=== PATIENT | male | born 1950 | race Caucasian/White ===

== ENCOUNTER → 2018-03-07 07:35 | Outpatient (CLI) | payer MEDICARE, OTHER, SELFPAY ==
--- NOTE | 2018-03-07 07:47 | CDU_ITS ---
Reason For Study: Carotid Stenosis Rt. Velocities/BP Lt. Velocities/BP Prox CCA 76.8/15.8 cm/sec. Prox CCA 101/25.2 cm/sec. Mid CCA 85/25.2 cm/sec. Mid CCA 81.5/20.5 cm/sec. Dist CCA 82.1/24.6 cm/sec. Dist CCA 84.4/25.2 cm/sec. Prox ICA 60.9/24 cm/sec. Prox ICA 57/19.6 cm/sec. Mid ICA 81.5/26.4 cm/sec. Mid ICA 63.2/27.9 cm/sec. Dist ICA 62.8/21.9 cm/sec. Dist ICA 80.9/36.2 cm/sec. Rt. ICA/CCA = 0.96. Lt. ICA/CCA = 0.96. Prox ECA 79.7/15.8 cm/sec. Prox ECA 83.3/19.9 cm/sec. Rt. Vert. 37.4/11.4 cm/sec. Lt. Vert. 42.4/15.3 cm/sec. Right Extracranial There is intimal thickening but no significant atherosclerotic plaque noted in the right common carotid artery. There is intimal thickening but no significant atherosclerotic plaque noted in the right internal carotid artery. There is intimal thickening but no significant atherosclerotic plaque noted in the right external carotid artery. Antegrade flow is noted in the right vertebral artery. There is heterogeneous, smooth atherosclerotic plaque noted in the right bulb. Left Extracranial There is intimal thickening but no significant atherosclerotic plaque noted in the left common carotid artery. There is intimal thickening but no significant atherosclerotic plaque noted in the left internal carotid artery. There is intimal thickening but no significant atherosclerotic plaque noted in the left external carotid artery. Antegrade flow is noted in the left vertebral artery. There is heterogeneous, smooth atherosclerotic plaque noted in the left bulb. Procedure Carotid Duplex 80675. Exam performed in department. Interpretation Summary No significant atherosclerotic plaque or stenosis noted in the internal carotid arteries bilaterally. Flow within the vertebral arteries is antegrade bilaterally. A small amount of smooth, atherosclerotic plaque is noted in the carotid bulbs bilaterally, which appears to be hemodynamically insignificant. Ordering Physician: Camilo Taylor Referring Physician: FAISAL Herring M.D. Performed By: Ana Carbajal RVT and Student
== END ==
PROVIDERS: Family Provider Family Medicine; PCP Family Medicine; Referring Provider Ophthalmology; Visit Provider Ophthalmology
DX: H53.10 Unspecified subjective visual disturbances (principal)
CPT/HCPCS: 93880

== ENCOUNTER 2020-12-22 19:04 | Inpatient (IN) | payer MEDICARE, OTHER, SELFPAY ==
[2020-12-22 19:05] VITALS: BP 106/59; PULSE 72; RESP 16; TEMP 38.1; O2SAT 100; BMI 19.9
--- NOTE | 2020-12-22 20:32 | RAD_ITS ---
INDICATION: dyspnea EXAMINATION/TECHNIQUE: X-RAY - XR Chest 1 View COMPARISON: None. FINDINGS: The lungs are clear. The cardiomediastinal silhouette is unremarkable. No pleural effusion or pneumothorax. No acute osseous abnormalities. RAD/Chest 1 View (Portable) IMPRESSION: No acute radiographic abnormalities. Electronically Signed: Moo Bernal MD at 21:30 EDT Tel , Service support ,
--- NOTE | 2020-12-22 20:32 | EX.ED.DYSGE1 ---
HPI History of Present Illness Chief Complaint: General Illness Detail of Chief Complaint: Shortness of breath and concern for Covid Informant: patient Narrative Narrative: Patient presents to the emergency department with symptoms for 6 days. Patient states that he is got a cough and is lost sense of smell and taste. Patient complains of headache and body aches and fever up to 101. Patient states that somebody came over today with a pulse oximeter and his O2 sat was running 77% on room air. Patient has not had the Covid vaccine. Patient's also had mild symptoms recently but symptoms resolved after several days. Patient's states that she believes she had Covid 2 years ago. Prior similar symptoms: No [facility] Medical History (Updated 12/22/20 @ 23:[address] Marvin Flores, ) Diabetes Home Medications glimepiride 1 mg PO DAILY 12/22/20 [History Last Taken Unknown] metformin 500 mg PO BID 12/22/20 [History Last Taken Unknown] pravastatin 10 mg PO DAILY 12/22/20 [History Last Taken Unknown] Allergy/AdvReac Type Severity Reaction Status Date / Time No Known Allergies Allergy Verified 12/22/20 19:08 Social History Smoking Status: Never smoker [facility] ED Constitutional Constitutional ED: Reports systems reviewed and no addt'l complaints, except as documented and fever(s); Denies body ache(s), change in weight or chills Eyes Eyes: Denies acute decrease in peripheral vision, change in vision, double vision or loss of vision ENT ENT ED: Reports none; Denies ear pain, lip swelling, loss taste/smell, neck pain, otalgia or sore throat Cardiovascular Cardiovascular: Reports none; Denies abdominal pain, chest pain with activity, leg edema, lightheadedness, palpitations, rapid heart rate or syncope Respiratory/Chest Respiratory/Chest: Reports none, cough and dyspnea on exertion; Denies change in mental status, dry cough, dyspnea, hemoptysis, shortness of breath at rest, shortness of breath with exertion or sputum Gastrointestinal Gastrointestinal: Reports none; Denies abdominal pain, change in stool character, diarrhea, hematemesis, hematochezia, melena, rectal bleeding or vomiting Genitourinary Genitourinary ED: Reports none; Denies abdominal discomfort, anuria, dysuria, genital pain or polyuria Musculoskeletal Musculoskeletal: Reports none, arthralgias and myalgias; Denies back pain, difficulty walking, extremity pain or muscle weakness Integumentary Reports none; Denies abscess or rash Neurologic Neurologic: Reports none and headache(s); Denies abnormal gait, confusion, focal weakness, frequent falls, loss of vision, numbness, paresthesias, radicular pain, vertigo or weakness Psychiatric Psychiatric: Reports systems reviewed and no addt'l complaints, except as documented and none; Denies behavioral changes, confusion, difficulty concentrating, hallucinations, suicidal ideation, tactile hallucinations or visual hallucinations Endocrine Endocrinology: Denies none, cold intolerance, excessive sweating, fatigue or heat intolerance Hematologic/Lymphatic Hematologic/Lymphatic: Reports none; Denies anemia, easy bleeding or easy bruising Allergic/Immunologic Allergic/Immunologic ED: Denies as per HPI, none, lip swelling, mouth swelling, throat swelling, tongue swelling or hives EXAM Physical Exam Const Vital Signs: 12/22/20 19:05 12/22/20 20:26 12/22/20 21:52 Temperature 100.5 F H Temperature Source Temporal Pulse Rate 72 86 Respiratory Rate 16 18 Respiratory Effort Normal Respiratory Pattern Irregular Blood Pressure 106/59 L 108/60 Blood Pressure Mean 74 76 Pulse Ox 100 99 Oxygen Delivery Method Room Air Room Air Room Air Positive well nourished and well developed General Appearance ED: well developed and NAD HEENT Reports TM's clear and moist mucous membranes normocephalic and atraumatic; Negative for trauma or tenderness Tympanic Membrane ED: Yes TM's clear Eyes PERRL and EOMs intact bilaterally General Eye ED: Negative for pale conjunctiva or scleral icterus Neck no lymphadenopathy, supple and no JVD General: Negative for tenderness Chest Wall inspection of chest normal and palpation of chest normal Chest: Negative for tenderness Resp normal respiratory effort and clear to auscultation bilaterally Effort and Inspection: Negative for respiratory distress or pain with movement Auscultation: Negative for rhonchi, wheezes or diminished lung sounds Cardio regular rate, regular rhythm, S1 normal heart sound, S2 normal heart sound and no murmurs Peripheral Pulses: pulses 2+ throughout GI normal to inspection, nondistended, normoactive bowel sounds, soft to palpation, non-tender, non-distended and no masses Back/Spine no CVA tenderness and no thoracic nor lumbar tenderness Extremity normal to inspection General Extremety ED: Negative for edema General Extremity: Negative for edema Neuro oriented x3, CN's II-XII intact bilaterally, no sensory deficits noted and gait normal Sensorium / Orientation: awake, alert, oriented to person, oriented to place and oriented to time Motor Exam: strength 5/5 throughout and strength abnormal Psych mental status grossly normal Skin no rashes or lesions noted and no wounds MDM MDM MDM Narrative Medical decision making narrative: IV line established on arrival. Patient ambulated in the emergency department and became hypoxic with ambulation with a pulse ox of 85%. Patient was given Decadron. Case will be discussed with hospitalist to evaluate patient for admission. Lab Data Attestation: I reviewed the patient's lab results. Labs: Laboratory Results - last 24 hr 12/22/20 12/22/20 12/22/20 21:15 21:15 21:15 WBC 5.8 RBC 5.14 Hgb 15.2 Hct 46.3 MCV 90.1 MCH 29.6 MCHC 32.8 RDW Std Deviation 42.8 RDW Coeff of Autumn 12.9 Plt Count 117 L MPV 10.5 Immature Gran % (Auto) 0.300 Neut % (Auto) 77.8 H Lymph % (Auto) 16.9 L [place] % (Auto) 4.8 Eos % (Auto) 0.0 Baso % (Auto) 0.2 Absolute Neuts (auto) 4.5 Absolute Lymphs (auto) 0.98 Nucleated RBC % 0 D-Dimer Quant (PE/DVT) 1.21 H* Sodium 131 L Potassium 3.7 Chloride 95 L Carbon Dioxide 31.0 Anion Gap 5 BUN 21 H Creatinine 0.82 Estim Creat Clear Calc 70.53 Est GFR (MDRD) Af Amer 118 Est GFR (MDRD) Non-Af 97 BUN/Creatinine Ratio 25.5 H Glucose 151 H Lactic Acid Calcium 8.5 12/22/20 21:15 WBC RBC Hgb Hct MCV MCH MCHC RDW Std Deviation RDW Coeff of Autumn Plt Count MPV Immature Gran % (Auto) Neut % (Auto) Lymph % (Auto) [place] % (Auto) Eos % (Auto) Baso % (Auto) Absolute Neuts (auto) Absolute Lymphs (auto) Nucleated RBC % D-Dimer Quant (PE/DVT) Sodium Potassium Chloride Carbon Dioxide Anion Gap BUN Creatinine Estim Creat Clear Calc Est GFR (MDRD) Af Amer Est GFR (MDRD) Non-Af BUN/Creatinine Ratio Glucose Lactic Acid 1.6 Calcium Radiography Diagnostic Testing: Radiology Impression Chest X-Ray 12/22/20 20:32 IMPRESSION: No acute radiographic abnormalities. Electronically Signed: Moo Bernal MD at 21:30 EDT Tel , Service support , Chest CTA 12/22/20 22:03 IMPRESSION: Normal CTA chest examination, without a demonstrated pulmonary embolism or arterial dissection. Electronically Signed: Randy Oconnor DO at 23:05 EDT Tel [phone], Service support , 1 view chest x-ray obtained interpreted by myself as no acute disease process. Radiology in agreement. Discharge Plan Dx/Rx/DC Orders Clinical Impression: COVID-19, Hypoxemia Disposition Disposition: Acute Care Hospital [facility]
[2020-12-22] MEDS: 0.9% Normal Saline 1,000 ML 150 ML IV (21:25)
[2020-12-22 21:52] VITALS: BP 108/60; PULSE 86; RESP 18; O2SAT 99
[2020-12-22 21:55] LABS: Absolute Lymphocyte Count 0.98 X10^3/uL (0.83-4.51); Absolute Neutrophil Count 4.5 X10^3/uL (2.0-7.7); Basophil# 0.01 X10^3/uL; Basophil% 0.2 % (0-1); Hematocrit 46.3 % (40-54); Hemoglobin 15.2 g/dL (13.0-16.5); Lymphocyte # 0.98 X10^3/ul (0.83-4.51); Lymphocyte % 16.9 % (19-41); Mean Corp Hgb Conc 32.8 g/dL (32-36); Mean Corpuscular Hgb 29.6 pg (27.0-32.0); Mean Corpuscular Volume 90.1 fL (80-94); Mean Platelet Vol. 10.5 fl (6.2-12.0); Monocyte# 0.28 X10^3/uL; Monocyte% 4.8 % (0-10); NRBC Flagged by Analyzer 0 % (0-5); Neutrophil # 4.52 X10^3/uL (2.7-7.7); Neutrophil % 77.8 % (47-70); Platelet Count 117 K/mm3 (150-450); RBC Distribution Width CV 12.9 % (11.6-14.6); RBC Distribution Width SD 42.8 fl (35.1-43.9); Red Blood Count 5.14 M/mm3 (4.6-6.2); White Blood Count 5.8 K/mm3 (4.4-11.0)
[2020-12-22 22:02] LABS: D-Dimer Quantitative (DVT/PE) 1.21 FEU/ug/m (0.27-0.49)
--- NOTE | 2020-12-22 22:03 | CT_ITS ---
STUDY: CTA CHEST REASON FOR EXAM: Male, 70 years old. Fever. Low oxygen level. Elevated d-dimer. COVID positive RADIATION DOSAGE (If Supplied By Facility): CTDIvol = ( 8.98 ) mGy, DLP = ( 230.21 ) mGycm TECHNIQUE: The examination was performed with the intravenous administration of IV 100mL Isovue-370. Post-processing of the angiographic images was performed, with multiplanar reformation and 3D reconstruction. Individualized dose optimization techniques were used for this CT. COMPARISON: Chest, 12/22/2020. FINDINGS: Normal enhancement of the main pulmonary artery and right and left pulmonary arteries. Normal enhancement of the bilateral peripheral pulmonary arteries. There is no demonstrated pulmonary embolism. Atherosclerotic changes of the descending thoracic aorta without aneurysm. There is no demonstrated aortic dissection. Normal heart and pericardium. Minimal coronary artery calcifications. Normal mediastinum. Normal hilar regions. Normal visualized trachea and bronchi. The lungs are well expanded. Normal pulmonary parenchyma. Normal pleura. Normal chest wall structures. Normal osseous structures. Normal visualized upper abdomen. CT/CTA Chest W/WO Contrast IMPRESSION: Normal CTA chest examination, without a demonstrated pulmonary embolism or arterial dissection. Electronically Signed: Randy Oconnor DO at 23:05 EDT Tel [phone], Service support ,
[2020-12-22 22:19] LABS: Anion Gap 5 (5-15); BUN 21 mg/dL (7-18); BUN/Creat Ratio 25.5 RATIO (10-20); Calcium,Total 8.5 mg/dL (8.5-10.1); Chloride 95 mmol/L (98-107); Creatinine, Serum 0.82 mg/dL (0.70-1.30); EST Glomerular Filtration Rate 97 mL/min (>60); Est Glom Filt Rate - Afr Amer 118 mL/min (>60); Estimated Creatinine Clearance 70.53 ml/min; Glucose 151 mg/dL (74-106); Potassium 3.7 mmol/L (3.5-5.1); Sodium Level 131 mmol/L (136-145)
[2020-12-22 22:27] LABS: Lactic Acid 1.6 mmol/L (0.4-1.9)
[2020-12-22 23:24] VITALS: O2SAT 91
--- NOTE | 2020-12-22 23:51 | PCM.HP.STD ---
HPI - General General Date of Admission: 12/22/20 Date of Service: 12/22/20 Chief Complaint: Fever, fatigue, malaise, dizziness x 3-4 days. HPI Narrative The patient is a 70 y/o M w/ PMHx: HLD, Diabetes mellitus type II, Former tobacco use who presents to the [facility] ED on 12/22/20 with history of onset progressively worsening fatigue, malaise, fever, frontal headaches, mild scratchy throat, alteration to sense of taste and smell, body aches in addition to cough and dyspnea worsening over the last 7 days prompting eventual ED presentation. He denies having been COVID vaccinated. His is also present and denies having been ill recently. Patient denies any associated nausea, emesis, diarrhea or abdominal cramping. He does report mild lightheadedness and dizziness. He does state he has had poor appetite with decreased intake. In the ED work-up included T1 100.5, heart rate 72, BP 106/59, respiratory rate 16, patient initially was 98 200% on room air when first evaluated however with ambulation to patient room and to restroom he significantly became hypoxic down to 85% and was placed on supplemental oxygen with ambulation, improved to 91 to 93% while seated upright in the ED bed following, CBC with WC 5.8, hemoglobin 15.2, platelet 117 without marked shift, D-dimer 1.21, BMP with sodium 131, chloride 95, BUN/creatinine 21/0.82, glucose 151, lactic acid 1.6, rapid Covid antigen positive, chest x-ray with no acute cardiopulmonary findings, follow-up CTPA with no acute PE or dissection nor any evidence of Covid pneumonia. In the ED patient ministered 6 mg dexamethasone p.o. x1 as well as normal saline. Upon initial ED evaluation and discussion with family and patient, reticent for usage of remdesivir however eventually decided that they were amenable to this treatment. [facility] Medical History (Updated 12/23/20 @ 00:[address] Smitha Palacios MD) Diabetes mellitus type II, controlled HLD (hyperlipidemia) Home Medications glimepiride 1 mg PO DAILY 12/22/20 [History Last Taken Unknown] metformin 500 mg PO BID 12/22/20 [History Last Taken Unknown] pravastatin 10 mg PO DAILY 12/22/20 [History Last Taken Unknown] Allergy/AdvReac Type Severity Reaction Status Date / Time No Known Allergies Allergy Verified 12/22/20 19:08 Family History (Updated 12/23/20 @ 00:[address] Smitha Palacios MD) Mother Hypertension other (Patient denies any marked paternal family history including HD, DM, CA.) Surgical History (Updated 12/23/20 @ 00:[address] Smitha Palacios MD) S/P eye surgery Social History (Updated 12/23/20 @ 00:[address] Smitha Palacios MD) household members: spouse Smoking Status: Former smoker how long ago did patient quit smokin/4 ppd cigarette tobacco use in his 30s, smoked 5-10 years. alcohol intake: never substance use type: does not use ROS ROS Narrative Admission Review of Systems: CONSTITUTIONAL: No weight loss, + fever, chills, weakness or fatigue. HEENT: + Altered sense of taste and smell, headache, scratchy throat. Eyes: No visual loss, blurred vision, double vision or yellow sclerae. Ears, Nose, Throat: No hearing loss, sneezing, congestion, runny nose. SKIN: No rash or itching, lesions, wounds. CARDIOVASCULAR: No chest pain, chest pressure or chest discomfort, palpitations, edema, orthopnea, syncopal events. RESPIRATORY: + shortness of breath, cough, No marked sputum, wheezing, hemoptysis. GASTROINTESTINAL: + anorexia, No nausea, vomiting or diarrhea, abdominal pain, melena, BRBPR. GENITOURINARY: No dysuria, frequency, urgency or retention. NEUROLOGICAL: No headache, dizziness, syncope, paralysis, ataxia, numbness or tingling in the extremities, focal weakness, change in bowel or bladder control, seizure. MUSCULOSKELETAL: + muscle, back pain, joint pain or stiffness. HEMATOLOGIC: No anemia, bleeding or bruising. LYMPHATICS: No enlarged nodes. No history of splenectomy. PSYCHIATRIC: No history of depression or anxiety. ENDOCRINOLOGIC: No reports of sweating, cold or heat intolerance. No polyuria or polydipsia. ALLERGIES: No history of asthma, hives, eczema or rhinitis. Vital Signs Vital Signs Vital Signs: 12/22/20 19:05 12/22/20 20:26 12/22/20 21:52 Temperature 100.5 F H Temperature Source Temporal Pulse Rate 72 86 Respiratory Rate 16 18 Respiratory Effort Normal Respiratory Pattern Irregular Blood Pressure 106/59 L 108/60 Blood Pressure Mean 74 76 Pulse Ox 100 99 Oxygen Delivery Method Room Air Room Air Room Air Weight Weight: 135 lb Body Mass Index (BMI) 19.9 Physical Exam Narrative Physical Examination: General: Awake, alert, oriented x 3 and cooperative, seated upright in the ED bed, fatigued and ill-appearing, intermittently will desaturate even while resting the bed to the upper 80s. Skin: Normal color, normal turgor, no icterus, no cyanosis. HEENT: AT/NC, EOMI, PERRLA, moderately dry MM, no carotid bruits or JVD noted. Lungs: Diffusely diminished, greater bases, mild crackles bases, no evidence of any distress, no rales, ronchi or wheezing. Heart: Regular rate and rhythm; no gallop, rub audible. Abdomen: Soft, NTTP, ND, normal BS, no HSM. Extremities: No cyanosis, clubbing, or edema. Neurological: Patient awake, alert, oriented as noted, cognitive function intact; pupils equally reactive to light and accommodation, cranial nerves II-XII grossly normal, moving all 4 extremities, no focal deficits, strength moderately to severely global decrease secondary to acute presentation. Psychiatric: Affect appears fatigued, ill-appearing, no acute evidence of depressive or anxiety feelings. Results Lab / Micro Data Result Diagrams: 12/22/20 21:15 12/22/20 21:15 Labs: Laboratory Results - last 24 hr 12/22/20 21:15: WBC 5.8, RBC 5.14, Hgb 15.2, Hct 46.3, MCV 90.1, MCH 29.6, MCHC 32.8, RDW Std Deviation 42.8, RDW Coeff of Autumn 12.9, Plt Count 117 L, MPV 10.5, Immature Gran % (Auto) 0.300, Neut % (Auto) 77.8 H, Lymph % (Auto) 16.9 L, [place] % (Auto) 4.8, Eos % (Auto) 0.0, Baso % (Auto) 0.2, Absolute Neuts (auto) 4.5, Absolute Lymphs (auto) 0.98, Nucleated RBC % 0 12/22/20 21:15: D-Dimer Quant (PE/DVT) 1.21 H* 12/22/20 21:15: Sodium 131 L, Potassium 3.7, Chloride 95 L, Carbon Dioxide 31.0, Anion Gap 5, BUN 21 H, Creatinine 0.82, Estim Creat Clear Calc 70.53, Est GFR (MDRD) Af Amer 118, Est GFR (MDRD) Non-Af 97, BUN/Creatinine Ratio 25.5 H, Glucose 151 H, Calcium 8.5 12/22/20 21:15: Lactic Acid 1.6 Micro: Microbiology 12/22/20 20:20 Nasal Secretion SARS-CoV-2 Antigen (Rapid) - Final SARS-CoV-2 (COVID 19) Radiology Impression Chest X-Ray 12/22/20 20:32 IMPRESSION: No acute radiographic abnormalities. Electronically Signed: Moo Bernal MD at 21:30 EDT Tel , Service support , Chest CTA 12/22/20 22:03 IMPRESSION: Normal CTA chest examination, without a demonstrated pulmonary embolism or arterial dissection. Electronically Signed: Randy Oconnor DO at 23:05 EDT Tel [phone], Service support , Assessment & Plan Assessment/Plan (1) Hypoxemia: (2) COVID-19: PLAN: The patient is a 70 y/o M w/ PMHx: HLD, Diabetes mellitus type II, Former tobacco use who presents to the [facility] ED on 12/22/20 with history of onset progressively worsening fatigue, malaise, fever, frontal headaches, mild scratchy throat, alteration to sense of taste and smell, body aches in addition to cough and dyspnea worsening over the last 7 days prompting eventual ED presentation. 1. Acute Hypoxia secondary to Acute Viral Syndrome, COVID-19: We will admit to medical surgical floor on telemetry, maintain Covid precautions, will maintain on oxygen with wean as tolerated to room air, PRN albuterol, HOB, IS parameters w/ pending sputum cultures, respiratory viral panel and urine antigens, will obtain procalcitonin, CRP, CPK, Ferritin, LDH, trop and BNP, continue supportive care including q 2 hour turning including prone given no prone bed availability and judicious hydration, closely monitor for worsening status for ARDS and multiorgan failure, will initiate and continue IV decadron x 10 doses, given presentation will also initiate IV remdesivir to which patient and spouse were both amenable following lengthy discussions. 2. Thrombocytopenia, suspect acute secondary to #1: Admission platelets 117, unclear baseline however given #1 do suspect acute, will repeat CBC in AM. 3. Hyponatremia, mild, suspected hypovolemic: Admission sodium 131, chloride 95, do suspect mild dehydration secondary to #1, will judiciously hydrate especially given #1 and repeat CMP in AM. 4. Diabetes mellitus type II: Hold oral home regimen, ADA diet, accu checks w/ ISS. 5. Hyperlipidemia: Continue home statin regimen. 6. Former tobacco use: Encourage continued tobacco cessation. 7. DVT prophylaxis: SCDs, Lovenox. 8. CODE status: Patient HCPJENNIFER is his who is present and living will is currently in place. Discussed CODE status at length including difference between FULL code, DNR-CCA and DNR-CC status. Following discussions about the differences in these status, requested Full Code status. Discussed also possible need if worsens for usage of air Vo and BiPAP to which patient was amenable. Advanced Care Planning Face to Face Time: 16 minutes. Charges/Coding Visit Charges Inpatient E&M: 76370 Init Hosp L3 Procedures Hospitalists Procedures: 68142 Advncd Care Plan 30 Min
[2020-12-23] VITALS (12 sets, daily range): BP systolic 74–117; BP diastolic 60–79; PULSE 52–74; RESP 15–48; TEMP 35.5–38.6; O2SAT 95–99
[2020-12-23] MEDS: dexAMETHasone 4 MG/ML Vial 6 MG IV ×2 (00:25→09:32)
[2020-12-23 00:51] LABS: BNP,B-Type NATRIURETIC PEPTIDE 19.2 pg/mL (0-100)
[2020-12-23 00:54] LABS: Ferritin 786 ng/mL (26-388); LDH 475 U/L (87-241); Magnesium 2.1 mg/dL (1.6-2.6)
[2020-12-23 01:00] LABS: Procalcitonin 0.09 ng/mL (0.00-0.09)
--- NOTE | 2020-12-23 01:13 | PCS.PANDOC ---
PANDEMIC DOCUMENTATION INITIATED: Date: 11/15/2020 Time: 190
[2020-12-23] MEDS: 0.9% Normal Saline 1,000 ML 100 ML IV (01:31)
[2020-12-23] MEDS: 0.9% Saline Lock 10 ML Syringe IV ×2 (01:48→20:44)
[2020-12-23] MEDS: Acetaminophen 325 MG Tablet 650 MG PO ×2 (01:51→09:30)
[2020-12-23 05:22] LABS: Absolute Neutrophil Count 5.1 X10^3/uL (2.0-7.7); Basophil# 0.01 X10^3/uL; Basophil% 0.2 % (0-1); Hematocrit 42.9 % (40-54); Hemoglobin 14.1 g/dL (13.0-16.5); Lymphocyte % 10.1 % (19-41); Mean Corp Hgb Conc 32.9 g/dL (32-36); Mean Corpuscular Hgb 29.7 pg (27.0-32.0); Mean Corpuscular Volume 90.3 fL (80-94); Mean Platelet Vol. 10.2 fl (6.2-12.0); Monocyte# 0.24 X10^3/uL; NRBC Flagged by Analyzer 0 % (0-5); Neutrophil # 5.07 X10^3/uL (2.7-7.7); Neutrophil % 85.2 % (47-70); POSITIVE DIFFERENTIAL YES; POSITIVE MORPHOLOGY YES; Platelet Count 118 K/mm3 (150-450); RBC Distribution Width CV 12.8 % (11.6-14.6); RBC Distribution Width SD 42.5 fl (35.1-43.9); Red Blood Count 4.75 M/mm3 (4.6-6.2)
[2020-12-23 05:35] LABS: Differential Indicated SCAN CRITERIA MET
[2020-12-23 06:15] LABS: ALB/GLOB Ratio 0.6 RATIO (0.9-2.4); AST(SGOT) 31 U/L (15-37); Alanine Aminotransfer ALT/SGPT 17 U/L (16-61); Albumin, Serum 2.5 g/dL (3.2-5.0); Alkaline Phosphatase 68 U/L (45-117); Anion Gap 5 (5-15); BUN 17 mg/dL (7-18); BUN/Creat Ratio 21.9 RATIO (10-20); Calcium,Total 7.7 mg/dL (8.5-10.1); Chloride 104 mmol/L (98-107); Creatinine, Serum 0.78 mg/dL (0.70-1.30); EST Glomerular Filtration Rate 105 mL/min (>60); Est Glom Filt Rate - Afr Amer 127 mL/min (>60); Estimated Creatinine Clearance 58.18 ml/min; Globulin 3.9 g/dL (2.2-4.2); Glucose 221 mg/dL (74-106); Protein, Total 6.4 g/dL (6.4-8.2); Sodium Level 136 mmol/L (136-145)
[2020-12-23] MEDS: Insulin Lispro 100 UNIT/ML INSULN.PEN SC ×4 (06:46→21:32)
[2020-12-23 06:50] LABS: Bedside Glucose 218 mg/dL (70-110)
--- NOTE | 2020-12-23 08:15 | PCM.PN.HOSP ---
Objective Data Objective Data Vital Signs: Vital Signs Temp Pulse Resp BP Pulse Ox 98.8 F 52 L 23 H 116/67 97 12/23/20 04:00 12/23/20 07:09 12/23/20 04:00 12/23/20 04:00 12/23/20 04:00 Oxygen Flow Rate (L/min) 3 Oxygen Delivery Method Nasal Cannula Weight: 61.6 kg Body Mass Index (BMI) 20.0 Intake & Output: Intake and Output for Last 24 Hours 12/21/20 12/22/20 12/23/20 23:59 23:59 23:59 Intake Total 1610 / 1610 Output Total 600 / 600 Balance 1010 / 1010 Lab / Micro Data Result Diagrams: 12/23/20 05:14 12/23/20 05:14 Labs: Laboratory Results - last 24 hr 12/22/20 21:15: WBC 5.8, RBC 5.14, Hgb 15.2, Hct 46.3, MCV 90.1, MCH 29.6, MCHC 32.8, RDW Std Deviation 42.8, RDW Coeff of Autumn 12.9, Plt Count 117 L, MPV 10.5, Immature Gran % (Auto) 0.300, Neut % (Auto) 77.8 H, Lymph % (Auto) 16.9 L, [place] % (Auto) 4.8, Eos % (Auto) 0.0, Baso % (Auto) 0.2, Absolute Neuts (auto) 4.5, Absolute Lymphs (auto) 0.98, Nucleated RBC % 0 12/22/20 21:15: D-Dimer Quant (PE/DVT) 1.21 H* 12/22/20 21:15: Sodium 131 L, Potassium 3.7, Chloride 95 L, Carbon Dioxide 31.0, Anion Gap 5, BUN 21 H, Creatinine 0.82, Estim Creat Clear Calc 70.53, Est GFR (MDRD) Af Amer 118, Est GFR (MDRD) Non-Af 97, BUN/Creatinine Ratio 25.5 H, Glucose 151 H, Calcium 8.5 12/22/20 21:15: Lactic Acid 1.6 12/22/20 21:15: Magnesium 2.1, Ferritin 786 H, Lactate Dehydrogenase 475 H, C-React Prot Ext Range 56.60 H 12/22/20 21:15: B-Natriuretic Peptide 19.2 12/22/20 21:15: Procalcitonin 0.09 12/23/20 05:14: WBC 6.0, RBC 4.75, Hgb 14.1, Hct 42.9, MCV 90.3, MCH 29.7, MCHC 32.9, RDW Std Deviation 42.5, RDW Coeff of Autumn 12.8, Plt Count 118 L, MPV 10.2, Immature Gran % (Auto) 0.500, Neut % (Auto) 85.2 H, Lymph % (Auto) 10.1 L, [place] % (Auto) 4.0, Eos % (Auto) 0.0, Baso % (Auto) 0.2, Absolute Neuts (auto) 5.1, Absolute Lymphs (auto) 0.60 L, Nucleated RBC % 0 12/23/20 05:14: Sodium 136, Potassium 4.0, Chloride 104, Carbon Dioxide 27.0, Anion Gap 5, BUN 17, Creatinine 0.78, Estim Creat Clear Calc 58.18, Est GFR (MDRD) Af Amer 127, Est GFR (MDRD) Non-Af 105, BUN/Creatinine Ratio 21.9 H, Glucose 221 H, Calcium 7.7 L, Total Bilirubin 0.40, AST 31, ALT 17, Alkaline Phosphatase 68, Total Protein 6.4, Albumin 2.5 L, Globulin 3.9, Albumin/Globulin Ratio 0.6 L 12/23/20 06:41: POC Glucose 218 H Micro: Microbiology 12/23/20 01:30 Mucosa - Nasopharyngeal Respiratory Panel (PCR) - Final 12/22/20 20:20 Nasal Secretion SARS-CoV-2 Antigen (Rapid) - Final SARS-CoV-2 (COVID 19) Radiography Diagnostic Testing: Radiology Impression Chest X-Ray 12/22/20 20:32 IMPRESSION: No acute radiographic abnormalities. Electronically Signed: Moo Bernal MD at 21:30 EDT Tel , Service support , Chest CTA 12/22/20 22:03 IMPRESSION: Normal CTA chest examination, without a demonstrated pulmonary embolism or arterial dissection. Electronically Signed: Randy Oconnor DO at 23:05 EDT Tel [phone], Service support , Physical Exam Narrative GENERAL: cooperative HEENT: Atraumatic; EYES; Anicteric, Normal Conjunctiva NECK; supple, normal thyroid, RESPIRATORY: Diminished to auscultation CARDIOVASCULAR: Regular S1 S2, GI: soft, normoactive bowel sounds, : No Renal angle tenderness; EXTREMITIES: No edema, no clubbing, MUSCULOSKELETAL: no muscle waisting NEURO: Awake; no lateralizing signs. SKIN: No Rash PSYCH; Flat affect Assessment & Plan Assessment/Plan (1) Hypoxemia: (2) COVID-19: PLAN: Patient is a 71-year-old gentleman who presented with progressive generalized weakness and fever of 3 days duration. An assessment of SARS-CoV-2 infection made. Patient admitted to a monitored bed for subsequent management 1. SARS-CoV-2 infection ?Imaging studies obtained did not show any infiltrate consistent with COVID-19. Patient has however been admitted to regular nursing floor. Patient was started on remdesivir and Decadron.. Subsequent markers of inflammation including CRP CPK ferritin LDH troponin and BMP ordered for monitoring. Patient was also placed on supplemental oxygen 2. Thrombocytopenia ?Suspected to be secondary to SARS-CoV-2 pneumonia we will continue with monitoring 3. 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 Diabetes mellitus type II -patient's oral hypoglycemics held. Placed on long acting insulin, Accu-Cheks a.c. and at bedtime and covered with sliding scale insulin 5. Elevated D-dimer ?Secondary to SARS-CoV-2 infection. CTA of the chest obtained was negative for PE 6. Dyslipidemia ?Patient is on pravastatin at home did continue 7. DVT prophylaxis ?Lovenox Charges/Coding Visit Charges Inpatient E&M: 09073 Subs Hosp L3
[2020-12-23] MEDS: guaiFENesin 10 ML UDC (200MG/10ML) 20 ML PO (09:30)
[2020-12-23] MEDS: Enoxaparin 30 MG/0.3 ML Syringe SC ×2 (09:36→20:42)
[2020-12-23 12:31] LABS: Bedside Glucose 294 mg/dL (70-110)
--- NOTE | 2020-12-23 13:15 | CASEMGMT ---
RN CM METAL CONTAINER MAKER CM to room to meet with patient for initial transition planning/care coordination assessment. LEW STEWART introduced self and role at [facility]. Pt voices understanding and consents to assessment at this time. Pt sitting on edge of bed, in no distress at this time. Pt is A/O at this time and answers all questions appropriately. Care providers, pharmacy, and demographics verified/updated at this time. PCP: Dr Duggan Specialists: [facility] Preferred Pharmacy: [facility] retail Insurance: [employer] Prescription Benefit: Yes Living Will/HPOA: States has both LW and HPOA, who is his , Analy. LNOK: , Analy. 2 dtrs: Leticia and Leah, and a son. Living Arrangements: Lives w/his in 2-story home w/2 steps to enter. Independent prior to recent illness. Transportation: Pt states drives self and states no transportation concerns at this time. also drives. DME: States has the following DME: nebulizer, glucometer, pulse ox No home O2. Pt may qualifiy for home O2 @ d/c. Pt was provided with list of DME providers including consistent with the patient's preferred geographic region, medical needs, and insurance network. Pt states does not have a preference of DME co and would like someone to call his to discuss options w/her, if he qualifies for O2 @ d/c. HHC/SNF: No hx of either. Denies needs for HHC. Pt wishes to return home and states has no concerns with going home at time of discharge. CM to follow for home oxygen needs and any further discharge planning/needs. Pt voices no further concerns/needs at this time. Advised pt to ask for CM if any further questions/concerns/needs arise. Voices understanding. PLAN: Home w/spousal support and discharge plans in place. CM to follow for O2 needs @ d/c. Julita HENAO RN, CM
[2020-12-23 18:00] LABS: Bedside Glucose 217 mg/dL (70-110)
--- NOTE | 2020-12-23 18:49 | NURSING ---
called and gave update again. no change did given update at 1800 when in patient room he was on phone with her discussed vitals and o2 use improving patient feeling better
[2020-12-23 21:30] LABS: Bedside Glucose 223 mg/dL (70-110)
[2020-12-24] VITALS (14 sets, daily range): BP systolic 100–120; BP diastolic 40–86; PULSE 50–72; RESP 12–18; TEMP 35.9–36.8; O2SAT 94–97
[2020-12-24] MEDS: Acetaminophen 325 MG Tablet 650 MG PO ×3 (01:39→19:56)
[2020-12-24] MEDS: Insulin Lispro 100 UNIT/ML INSULN.PEN SC ×3 (06:05→17:11)
[2020-12-24 06:36] LABS: Absolute Lymphocyte Count 1.55 X10^3/uL (0.83-4.51); Basophil# 0.01 X10^3/uL; Basophil% 0.1 % (0-1); Hematocrit 42.4 % (40-54); Hemoglobin 14.1 g/dL (13.0-16.5); Lymphocyte # 1.55 X10^3/ul (0.83-4.51); Mean Corp Hgb Conc 33.3 g/dL (32-36); Mean Corpuscular Hgb 29.7 pg (27.0-32.0); Mean Corpuscular Volume 89.3 fL (80-94); Mean Platelet Vol. 10.7 fl (6.2-12.0); Monocyte# 0.62 X10^3/uL; Monocyte% 7.6 % (0-10); NRBC Flagged by Analyzer 0 % (0-5); Neutrophil # 5.95 X10^3/uL (2.7-7.7); Neutrophil % 72.8 % (47-70); Platelet Count 149 K/mm3 (150-450); RBC Distribution Width CV 12.8 % (11.6-14.6); RBC Distribution Width SD 41.8 fl (35.1-43.9); Red Blood Count 4.75 M/mm3 (4.6-6.2); White Blood Count 8.2 K/mm3 (4.4-11.0)
[2020-12-24 06:41] LABS: Bedside Glucose 203 mg/dL (70-110)
[2020-12-24 06:54] LABS: ALB/GLOB Ratio 0.6 RATIO (0.9-2.4); AST(SGOT) 21 U/L (15-37); Alanine Aminotransfer ALT/SGPT 15 U/L (16-61); Albumin, Serum 2.4 g/dL (3.2-5.0); Alkaline Phosphatase 58 U/L (45-117); Anion Gap 4 (5-15); BUN 20 mg/dL (7-18); BUN/Creat Ratio 35.3 RATIO (10-20); Chloride 106 mmol/L (98-107); Creatinine, Serum 0.57 mg/dL (0.70-1.30); EST Glomerular Filtration Rate 150 mL/min (>60); Est Glom Filt Rate - Afr Amer 182 mL/min (>60); Estimated Creatinine Clearance 57.33 ml/min; Globulin 3.7 g/dL (2.2-4.2); Glucose 182 mg/dL (74-106); Magnesium 2.2 mg/dL (1.6-2.6); Protein, Total 6.1 g/dL (6.4-8.2); Sodium Level 139 mmol/L (136-145)
--- NOTE | 2020-12-24 07:41 | PN.HOSP_ITS ---
Subjective Subjective Patient seen improving clinically currently not on any supplemental oxygen. Plan is to observe patient for 1 additional day with possible discharge in a.m. Objective Data Objective Data Vital Signs: Vital Signs Temp Pulse Resp BP Pulse Ox 97.8 F 54 L 18 120/86 H 97 12/24/20 06:17 12/24/20 06:42 12/24/20 06:17 12/24/20 06:17 12/24/20 06:17 Oxygen Flow Rate (L/min) 2 Oxygen Delivery Method Room Air Weight: 60.7 kg Body Mass Index (BMI) 20.0 Intake & Output: Intake and Output for Last 24 Hours 12/22/20 12/23/20 12/24/20 23:59 23:59 23:59 Intake Total 3830 / 3830 240 / 240 Output Total 600 / 600 Balance 3230 / 3230 240 / 240 Lab / Micro Data Result Diagrams: 12/24/20 06:00 12/24/20 06:00 Labs: Laboratory Results - last 24 hr 12/23/20 11:37: POC Glucose 294 H 12/23/20 17:49: POC Glucose 217 H 12/23/20 20:40: POC Glucose 223 H 12/24/20 06:00: WBC 8.2, RBC 4.75, Hgb 14.1, Hct 42.4, MCV 89.3, MCH 29.7, MCHC 33.3, RDW Std Deviation 41.8, RDW Coeff of Autumn 12.8, Plt Count 149 L, MPV 10.7, Immature Gran % (Auto) 0.500, Neut % (Auto) 72.8 H, Lymph % (Auto) 19.0, [place] % (Auto) 7.6, Eos % (Auto) 0.0, Baso % (Auto) 0.1, Absolute Neuts (auto) 6.0, Absolute Lymphs (auto) 1.55, Nucleated RBC % 0 12/24/20 06:00: Sodium 139, Potassium 4.0, Chloride 106, Carbon Dioxide 29.0, Anion Gap 4 L, BUN 20 H, Creatinine 0.57 L, Estim Creat Clear Calc 57.33, Est GFR (MDRD) Af Amer 182, Est GFR (MDRD) Non-Af 150, BUN/Creatinine Ratio 35.3 H, Glucose 182 H, Calcium 8.0 L, Magnesium 2.2, Total Bilirubin 0.40, AST 21, ALT 15 L, Alkaline Phosphatase 58, Total Protein 6.1 L, Albumin 2.4 L, Globulin 3.7, Albumin/Globulin Ratio 0.6 L 12/24/20 06:04: POC Glucose 203 H Micro: Microbiology 12/23/20 02:25 Urine, Clean Catch Legionella Antigen - Final 12/23/20 02:25 Urine, Clean Catch Streptococcus pneumoniae Antigen (M - Final 12/23/20 01:30 Mucosa - Nasopharyngeal Respiratory Panel (PCR) - Final 12/22/20 20:20 Nasal Secretion SARS-CoV-2 Antigen (Rapid) - Final SARS-CoV-2 (COVID 19) Physical Exam Narrative GENERAL: cooperative HEENT: Atraumatic; EYES; Anicteric, Normal Conjunctiva NECK; supple, normal thyroid, RESPIRATORY: Diminished to auscultation CARDIOVASCULAR: Regular S1 S2, GI: soft, normoactive bowel sounds, : No Renal angle tenderness; EXTREMITIES: No edema, no clubbing, MUSCULOSKELETAL: no muscle waisting NEURO: Awake; no lateralizing signs. SKIN: No Rash PSYCH; Flat affect Assessment & Plan Assessment/Plan (1) Hypoxemia: (2) COVID-19: PLAN: Patient is a 71-year-old gentleman who presented with progressive generalized weakness and fever of 3 days duration. An assessment of SARS-CoV-2 infection made. Patient admitted to a monitored bed for subsequent management 1. SARS-CoV-2 infection ?Imaging studies obtained did not show any infiltrate consistent with COVID-19. Patient has however been admitted to regular nursing floor. Patient was started on remdesivir and Decadron.. Subsequent markers of inflammation including CRP CPK ferritin LDH troponin and BMP ordered for monitoring. Patient was also placed on supplemental oxygen -12/24/2020 Patient seen improving clinically currently not on any supplemental oxygen. Plan is to observe patient for 1 additional day with possible discharge in a.m. 2. Thrombocytopenia ?Suspected to be secondary to SARS-CoV-2 pneumonia we will continue with monitoring 3. 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 Diabetes mellitus type II -patient's oral hypoglycemics held. Placed on long acting insulin, Accu-Cheks a.c. and at bedtime and covered with sliding scale insulin 5. Elevated D-dimer ?Secondary to SARS-CoV-2 infection. CTA of the chest obtained was negative for PE 6. Dyslipidemia ?Patient is on pravastatin at home did continue 7. DVT prophylaxis ?Maximus Charges/Coding Visit Charges Inpatient E&M: 85407 Subs Hosp L2
[2020-12-24] MEDS: Enoxaparin 30 MG/0.3 ML Syringe SC (09:46)
[2020-12-24 12:55] LABS: Bedside Glucose 225 mg/dL (70-110)
--- NOTE | 2020-12-24 15:10 | CASEMGMT ---
Addendum entered by Kerrie Hanson 12/24/20 15:37: Call back from and she states no preference for DME company after provided verbal list of local DME companies. states no further concerns/needs with pt coming home at discharge. Green sheet left on chart for possible home oxygen need. Pt is currently on room air. Samson HACKETT CM Original Note: Attempted to call , per pt request, so she can decide on DME company in case pt qualifies for home oxygen w/ exertion but does not answer at this time. PAT to follow for home oxygen need. Samson HACKETT CM
[2020-12-24 17:21] LABS: Bedside Glucose 226 mg/dL (70-110)
[2020-12-24 21:46] LABS: Bedside Glucose 154 mg/dL (70-110)
[2020-12-25] VITALS (7 sets, daily range): BP systolic 95–109; BP diastolic 61; PULSE 51–55; RESP 16; TEMP 37; O2SAT 93–98
[2020-12-25 06:45] LABS: Bedside Glucose 116 mg/dL (70-110)
[2020-12-25 07:26] LABS: Absolute Lymphocyte Count 1.29 X10^3/uL (0.83-4.51); Absolute Neutrophil Count 5.1 X10^3/uL (2.0-7.7); Basophil# 0.01 X10^3/uL; Basophil% 0.1 % (0-1); Eosinophil# 0.01 X10^3/uL; Eosinophils% 0.1 % (0-5); Hematocrit 45.8 % (40-54); Hemoglobin 14.1 g/dL (13.0-16.5); Lymphocyte # 1.29 X10^3/ul (0.83-4.51); Lymphocyte % 18.5 % (19-41); Mean Corp Hgb Conc 30.8 g/dL (32-36); Mean Corpuscular Hgb 29.9 pg (27.0-32.0); Mean Corpuscular Volume 97.2 fL (80-94); Mean Platelet Vol. 10.2 fl (6.2-12.0); Monocyte# 0.54 X10^3/uL; Monocyte% 7.7 % (0-10); NRBC Flagged by Analyzer 0 % (0-5); Neutrophil # 5.09 X10^3/uL (2.7-7.7); Neutrophil % 73.2 % (47-70); Platelet Count 149 K/mm3 (150-450); RBC Distribution Width SD 46.4 fl (35.1-43.9); Red Blood Count 4.71 M/mm3 (4.6-6.2)
[2020-12-25 07:47] LABS: ALB/GLOB Ratio 0.7 RATIO (0.9-2.4); AST(SGOT) 23 U/L (15-37); Alanine Aminotransfer ALT/SGPT 17 U/L (16-61); Albumin, Serum 2.4 g/dL (3.2-5.0); Alkaline Phosphatase 62 U/L (45-117); Anion Gap 5 (5-15); BUN 22 mg/dL (7-18); BUN/Creat Ratio 40.7 RATIO (10-20); Calcium,Total 8.2 mg/dL (8.5-10.1); Chloride 106 mmol/L (98-107); Creatinine, Serum 0.54 mg/dL (0.70-1.30); EST Glomerular Filtration Rate 159 mL/min (>60); Est Glom Filt Rate - Afr Amer 192 mL/min (>60); Estimated Creatinine Clearance 57.14 ml/min; Globulin 3.5 g/dL (2.2-4.2); Glucose 113 mg/dL (74-106); Potassium 3.7 mmol/L (3.5-5.1); Protein, Total 5.9 g/dL (6.4-8.2); Sodium Level 138 mmol/L (136-145)
[2020-12-25] MEDS: dexAMETHasone 4 MG/ML Vial 6 MG IV (08:02)
[2020-12-25] MEDS: 0.9% Saline Lock 10 ML Syringe IV (08:02)
[2020-12-25] MEDS: Acetaminophen 325 MG Tablet 650 MG PO (08:05)
--- NOTE | 2020-12-25 08:25 | DS.PCM_ITS ---
Providers Date of Admission: 12/22/20 Primary Care Physician: Dr. Diallo Duggan MD Reason For Visit: COVID, HYPOXIA Diagnosis Discharge Diagnosis (1) Hypoxemia: Status: Acute Code(s): R09.02 - Hypoxemia (2) COVID-19: Status: Acute Code(s): U07.1 - COVID-19 Medications at Discharge Home Medications glimepiride 1 mg PO DAILY 12/22/20 metformin 500 mg PO BID 12/22/20 pravastatin 10 mg PO DAILY 12/22/20 Hospital Course Summary of Care Provided Minutes Spent on Discharge: 35 Hospital Course: Patient is a 71-year-old gentleman who presented with progressive generalized weakness and fever of 3 days duration. An assessment of SARS-CoV-2 infection made. Patient admitted to a monitored bed for subsequent management 1. SARS-CoV-2 infection ?Imaging studies obtained did not show any infiltrate consistent with COVID-19. Patient has however been admitted to regular nursing floor. Patient was started on remdesivir and Decadron.. Subsequent markers of inflammation including CRP CPK ferritin LDH troponin and BMP ordered for monitoring. Patient was also placed on supplemental oxygen -12/24/2020 Patient seen improving clinically currently not on any supplemental oxygen. Plan is to observe patient for 1 additional day with possible discharge in a.m. -12/25/2020; patient assessed deemed stable for discharge. Patient was instructed to current time for total of 21 days from the beginning of his symptoms. 2. Thrombocytopenia ?Suspected to be secondary to SARS-CoV-2 pneumonia we will continue with mon itoring 3. 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 Diabetes mellitus type II -patient's oral hypoglycemics held. Placed on long acting insulin, Accu-Cheks a.c. and at bedtime and covered with sliding scale insulin 5. Elevated D-dimer ?Secondary to SARS-CoV-2 infection. CTA of the chest obtained was negative for PE 6. Dyslipidemia ?Patient is on pravastatin at home did continue 7. DVT prophylaxis ?Lovenox Physical Exam Narrative GENERAL: cooperative HEENT: Atraumatic; EYES; Anicteric, Normal Conjunctiva NECK; supple, normal thyroid, RESPIRATORY: Diminished to auscultation CARDIOVASCULAR: Regular S1 S2, GI: soft, normoactive bowel sounds, : No Renal angle tenderness; EXTREMITIES: No edema, no clubbing, MUSCULOSKELETAL: no muscle waisting NEURO: Awake; no lateralizing signs. SKIN: No Rash PSYCH; Flat affect Weight / BMI Weight Weight: 60.5 kg Body Mass Index (BMI) 20.0 ABG / Lab / Microbiology Data Result Diagrams: 12/25/20 07:10 12/25/20 07:10 Laboratory: Laboratory Results - last 24 hr 12/24/20 12:12: POC Glucose 225 H 12/24/20 17:04: POC Glucose 226 H 12/24/20 21:37: POC Glucose 154 H 12/25/20 06:39: POC Glucose 116 H 12/25/20 07:10: WBC 7.0, RBC 4.71, Hgb 14.1, Hct 45.8, MCV 97.2 H D, MCH 29.9, MCHC 30.8 L D, RDW Std Deviation 46.4 H, RDW Coeff of Autumn 13.0, Plt Count 149 L, MPV 10.2, Immature Gran % (Auto) 0.400, Neut % (Auto) 73.2 H, Lymph % (Auto) 18.5 L, [place] % (Auto) 7.7, Eos % (Auto) 0.1, Baso % (Auto) 0.1, Absolute Neuts (auto) 5.1, Absolute Lymphs (auto) 1.29, Nucleated RBC % 0 12/25/20 07:10: Sodium 138, Potassium 3.7, Chloride 106, Carbon Dioxide 27.0, Anion Gap 5, BUN 22 H, Creatinine 0.54 L, Estim Creat Clear Calc 57.14, Est GFR (MDRD) Af Amer 192, Est GFR (MDRD) Non-Af 159, BUN/Creatinine Ratio 40.7 H, Glucose 113 H, Calcium 8.2 L, Total Bilirubin 0.50, AST 23, ALT 17, Alkaline Phosphatase 62, Total Protein 5.9 L, Albumin 2.4 L, Globulin 3.5, Albumin/Globulin Ratio 0.7 L Microbiology: Microbiology 12/22/20 21:25 Blood Culture (Wb) - Right Hand Blood Culture - Preliminary No growth in 48 hours. 12/22/20 21:15 Blood Culture (Wb) - Anticubital Left Blood Culture - Preliminary No growth in 48 hours. 12/23/20 02:25 Urine, Clean Catch Legionella Antigen - Final 12/23/20 02:25 Urine, Clean Catch Streptococcus pneumoniae Antigen (M - Final 12/23/20 01:30 Mucosa - Nasopharyngeal Respiratory Panel (PCR) - Final 12/22/20 20:20 Nasal Secretion SARS-CoV-2 Antigen (Rapid) - Final SARS-CoV-2 (COVID 19) D/C Instructions Discharge Diet: No restrictions Discharge Activity: Return to Normal Activity Call your doctor if you observe: Fever of 101 or Higher, Shortness of breath, Fainting spells and Chest pain Meaningful Use Info Meaningful Use Diagnoses (Choose all that apply): None applicable Discharge Plan Admission Admit Date/Time: 12/22/20 23:52 Primary Reason for Your Visit: COVID-19 Attending Provider: Rajinder Grace Primary Care Provider: Diallo Duggan Instructions Patient Instructions: Coronavirus Disease 2019 (COVID-19): Caring for Yourself or Others Discharge Orders/Prescriptions Prescriptions: Continued metformin 500 mg tablet 500 mg PO BID RF: 0 glimepiride 2 mg tablet 1 mg PO DAILY RF: 0 pravastatin 10 mg tablet 10 mg PO DAILY RF: 0 Referrals / Follow Up: Diallo Duggan MD [Primary Care Provider] - Within 2 Weeks Disposition Disposition (needs filled in before D/C Order can be placed): Home, Self Care Charges/Coding Visit Charges Inpatient E&M: 27836 Disch Hosp
[2020-12-25] MEDS: Insulin Lispro 100 UNIT/ML INSULN.PEN SC (11:21)
[2020-12-25 11:40] LABS: Bedside Glucose 299 mg/dL (70-110)
--- NOTE | 2020-12-27 14:35 | CASEMGMT ---
LEW STEWART COVID F/U Phone Call LACE: 6 Strata: 2 Discharge date: 12/25 Call date: 12/27/20 Call time: [phone] Admission dx: COVID, hypoxia Pt's answered phone and answered questions for pt. Pt states is still feeling 'worn out' but appetite is improving and pulse ox has stayed above 90%. Pt states no questions with oxygen set up at home. Pt/ voice no questions with d/c instructions/medications. states pt is scheduled to see PCP on 12/31/20. Pt/ voice no further questions/concerns/needs. [place] LEW STEWART
== END 2020-12-25 13:10 | disposition home or self-care (01) | DRG 178 ==
LOC: ED 23:38 → PCU 12-23 00:12
PROVIDERS: Admitting Provider Family Medicine; Emergency Provider Emergency Medicine; PCP Family Medicine; Visit Provider Internal Medicine
DX: U07.1 COVID-19 (principal); E22.2 Syndrome of inappropriate secretion of antidiuretic hormone; D69.59 Other secondary thrombocytopenia; E11.9 Type 2 diabetes mellitus without complications; R79.1 Abnormal coagulation profile; E78.5 Hyperlipidemia, unspecified; Z87.891 Personal history of nicotine dependence; R09.02 Hypoxemia; E86.0 Dehydration
CPT/HCPCS: 36415; 71045; 71275; 80048; 80053; 82728; 82962; 83605; 83615; 83735; 83880; 84145; 85025; 85379; 86140; 87040; 87426; 87449; 87633; 97162; 97530; 99251; 99284; J7030; J7050; Q9967; A4216; G0463